=== PATIENT | female | born 1955 | race Caucasian/White ===

== ENCOUNTER 2020-07-28 12:00 | Inpatient (IN) | payer BC ==
[~2020-07-28] VITALS: Ht 166.4 cm; Wt 72.6 kg
--- NOTE | 2020-07-28 12:05 | NUR ---
LATE ENTRY. BIBA FROM HOME, +COVID ON 07/20/2020, STATES SPO2 80% AT HOME AND FEELING WEAK, PLACED ON 3L NC BY EMS. PT STABLE AND IN NO ACUTE DISTRESS.
[2020-07-28 12:41] LABS: EOSINOPHILS % (AUTO) 0 % (1-7); MEAN CORPUSCULAR HEMOGLOBIN 28.7 pg (27.0-34.8); MEAN CORPUSCULAR HGB CONC 34.1 g/dL (32.4-35.8); MEAN PLATELET VOLUME 6.5 fL (7.4-10.4); MONOCYTES % (AUTO) 5 % (2-9); NEUTROPHILS % (AUTO) 78 % (42-75); PLATELET COUNT 226 x10^3/uL (130-400); RED BLOOD COUNT 4.93 x10^6/uL (3.82-5.3); RED CELL DISTRIBUTION WIDTH 13.3 % (9.6-15.2)
[2020-07-28 12:43] LABS: BASOPHILS % (AUTO) 1 % (0-1); LYMPHOCYTES % (AUTO) 16 % (22-44); MD NO
[2020-07-28 12:55] LABS: ALANINE AMINOTRANSFERASE 22 U/L (12-78); ALBUMIN 3.5 g/dL (3.4-5.0); ANION GAP 3 mmol/L (5-15); CALCIUM 7.4 mg/dL (8.5-10.1); CHLORIDE 103 mmol/L (98-107); CREATININE 0.68 mg/dL (0.55-1.02)
[2020-07-28 13:01] LABS: ALKALINE PHOSPHATASE 140 U/L (45-117); BILIRUBIN,TOTAL 0.3 mg/dL (0.2-1.0); D-DIMER (DIC) 0.32 ug/mlFEU (0.00-0.52); PROTIME 10.4 Seconds (9.6-11.5); TOTAL PROTEIN 7.4 g/dL (6.4-8.2)
[2020-07-28] MEDS ORDERED: LEVO112T2 PO (13:28)
[2020-07-28] MEDS ORDERED: SIMV40TA20 PO (13:29)
[2020-07-28] MEDS ORDERED: ESCI20TA8 PO (13:29)
--- NOTE | 2020-07-28 14:49 | NUR ---
GAVE REPORT TO ASHLEY CAMACHO
--- NOTE | 2020-07-28 14:50 | NUR ---
MED REC FINISHED
[2020-07-28] MEDS ORDERED: POTASSIUM CHLORIDE 20 MEQ TAB.ER.PRT PO ONE (15:00)
[2020-07-28] MEDS ORDERED: ACETAMINOPHEN 325 MG TABLET PO PRN (15:00)
[2020-07-28] MEDS ORDERED: DEXAMETHASONE 4 MG/ML, 1ML IVPush ONE (15:00)
[2020-07-28 15:34] VITALS: BP 129/73
[2020-07-28] MEDS: ENOXAPARIN 40 MG/0.4 ML SQ SCH (15:41)
[2020-07-28] MEDS ORDERED: GUAIFENESIN/DM 200-20MG, 10ML UDC PO PRN (16:30)
[2020-07-28 19:54] VITALS: BP 126/78
[2020-07-28] MEDS: FAMOTIDINE 20 MG TABLET PO SCH (21:31)
[2020-07-28] MEDS: SODIUM CHLORIDE FLUSH 10ML SYR IVF SCH (21:31)
[2020-07-29 02:01] VITALS: BP 136/80
[2020-07-29 06:00] LABS: ALANINE AMINOTRANSFERASE 20 U/L (12-78); ALBUMIN 2.9 g/dL (3.4-5.0); ANION GAP 9 mmol/L (5-15); CALCIUM 7.2 mg/dL (8.5-10.1); CHLORIDE 104 mmol/L (98-107)
[2020-07-29 06:02] LABS: ALKALINE PHOSPHATASE 115 U/L (45-117); BILIRUBIN,TOTAL 0.3 mg/dL (0.2-1.0); TOTAL PROTEIN 6.6 g/dL (6.4-8.2)
[2020-07-29 06:59] VITALS: BP 124/65
[2020-07-29] MEDS: DEXAMETHASONE 4 MG/ML, 1ML IVPush SCH (09:51)
[2020-07-29] MEDS: FAMOTIDINE 20 MG TABLET PO SCH ×2 (09:51→21:19)
[2020-07-29] MEDS: SODIUM CHLORIDE FLUSH 10ML SYR IVF SCH ×2 (09:51→21:19)
[2020-07-29 12:44] VITALS: BP 129/71
[2020-07-29] MEDS: CALCIUM CARBONATE 500 MG TABLET PO SCH ×2 (12:46→22:57)
[2020-07-29] MEDS: ENOXAPARIN 40 MG/0.4 ML SQ SCH (16:59)
[2020-07-29 18:32] VITALS: BP_SYST 115; BP_SYST 129; BP_SYST 138; BP_DIAS 73; BP_DIAS 78; BP_DIAS 86
[2020-07-29] MEDS: MELATONIN 5 MG TABLET PO PRN (21:19)
[2020-07-30 01:05] VITALS: BP 137/82
[2020-07-30 06:53] VITALS: BP 125/63
[2020-07-30] MEDS: DEXAMETHASONE 4 MG/ML, 1ML IVPush SCH (08:53)
[2020-07-30] MEDS: SODIUM CHLORIDE FLUSH 10ML SYR IVF SCH ×2 (08:53→20:58)
[2020-07-30] MEDS: FAMOTIDINE 20 MG TABLET PO SCH ×2 (08:53→20:57)
[2020-07-30] MEDS: CALCIUM CARBONATE 500 MG TABLET PO SCH ×2 (08:53→20:57)
[2020-07-30 13:23] VITALS: BP 140/79
[2020-07-30] MEDS: ENOXAPARIN 40 MG/0.4 ML SQ SCH (16:00)
[2020-07-30 20:00] VITALS: BP 138/74
[2020-07-30] MEDS: MELATONIN 5 MG TABLET PO PRN (20:57)
[2020-07-31 02:02] VITALS: BP 144/87
[2020-07-31 05:35] LABS: CALCIUM 7.3 mg/dL (8.5-10.1); CHLORIDE 104 mmol/L (98-107)
[2020-07-31 05:47] LABS: ANION GAP 6 mmol/L (5-15); CREATININE 0.54 mg/dL (0.55-1.02)
[2020-07-31 08:00] VITALS: BP 127/75
[2020-07-31] MEDS: SODIUM CHLORIDE FLUSH 10ML SYR IVF SCH (09:54)
[2020-07-31] MEDS: CALCIUM CARBONATE 500 MG TABLET PO SCH (09:55)
[2020-07-31] MEDS: DEXAMETHASONE 4 MG/ML, 1ML IVPush SCH (09:55)
[2020-07-31] MEDS: FAMOTIDINE 20 MG TABLET PO SCH (09:55)
[2020-07-31] MEDS ORDERED: [UNRECOGNIZED DRUG - CODE] PO (10:41)
[2020-07-31 14:12] VITALS: BP 127/86
[2020-07-31] MEDS: ENOXAPARIN 40 MG/0.4 ML SQ SCH (14:52)
[2020-07-31] MEDS ORDERED: Calcium Carbonate PO (16:32)
== END 2020-07-31 17:03 | disposition home or self-care (01) | DRG 177 ==
LOC: ED 13:24 → SUATTDRO 13:59 → EDIP 14:34 → 3N 14:43
PROVIDERS: ADMIT Family Medicine; ATTEND Family Medicine
DX: U07.1 COVID-19 (principal); J96.01 Acute respiratory failure with hypoxia; J12.82 Pneumonia due to coronavirus disease 2019; E78.5 Hyperlipidemia, unspecified; E03.9 Hypothyroidism, unspecified; E83.51 Hypocalcemia; E87.6 Hypokalemia; Z87.891 Personal history of nicotine dependence; Z79.899 Other long term (current) drug therapy; Z79.891 Long term (current) use of opiate analgesic
CPT/HCPCS: 36415; 71045; 80048; 80053; 82306; 82728; 83605; 83615; 83735; 84145; 85025; 85049; 85379; 85384; 85610; 85730; 86140; 87040; 93005; 96374; G0378; J1100; J1650